=== PATIENT | male | born 1995 | race African-American/Black ===

== ENCOUNTER 2022-03-16 04:12 | Emergency (ER) | payer OTHER ==
[~2022-03-16] VITALS: Ht 175.3 cm; Wt 91.6 kg
--- NOTE | 2022-03-16 05:35 | NUR ---
pt in room 3 a states he wants a medication refill.
--- NOTE | 2022-03-16 07:15 | NUR ---
Pt is resting in [facility] with NAD noted. Pt is requesing a medication refill, MSE pending.
[2022-03-16] MEDS ORDERED: DARU1TAB3 PO (08:06)
--- NOTE | 2022-03-16 08:12 | NUR ---
Patient discharged to home in stable condition. Written and verbal after care instructions given. Patient verbalizes understanding of instructions. Stressed follow up or return to ER for worsening s/s.
[2022-03-17] MEDS ORDERED: DARU1TAB3 PO (23:12)
== END 2022-03-16 08:13 | disposition home or self-care (01) ==
LOC: ER 04:26
DX: Z76.0 Encounter for issue of repeat prescription (principal)
CPT/HCPCS: A4663

== ENCOUNTER 2022-03-17 21:57 | Emergency (ER) | payer OTHER ==
[~2022-03-17] VITALS: Ht 177.8 cm; Wt 92.5 kg
[~2022-03-17 21:57] MED LIST: DARU1TAB3 PO
--- NOTE | 2022-03-17 22:00 | NUR ---
Patient walked into ER c/o lower extremity pain. Patient is A/Ox4, no CP, no SOB, no distress noted.
[2022-03-17] MEDS ORDERED: DARU1TAB3 PO (23:12)
--- NOTE | 2022-03-17 23:30 | NUR ---
Patient discharged to home in stable condition. Written and verbal after care instructions given. Patient verbalizes understanding of instructions. Stressed follow up or return to ER for worsening s/s. Patient is A/Ox4, no SOB, no distress noted
[2022-03-17 23:42] VITALS: BP 132/75
== END 2022-03-17 23:30 | disposition home or self-care (01) ==
LOC: ER 22:03
DX: S90.822A Blister (nonthermal), left foot, initial encounter (principal); S90.821A Blister (nonthermal), right foot, initial encounter; X58.XXXA Exposure to other specified factors, initial encounter; Y93.01 Activity, walking, marching and hiking; Y92.89 Other specified places as the place of occurrence of the external cause; F17.210 Nicotine dependence, cigarettes, uncomplicated
CPT/HCPCS: A4663

== ENCOUNTER 2022-03-25 20:58 | Emergency (ER) | payer OTHER ==
--- NOTE | 2022-03-26 06:41 | NUR ---
pt has left without being triaged.
== END 2022-03-25 21:15 | disposition left against medical advice (07) ==
LOC: ER 21:02
DX: Z53.21 Procedure and treatment not carried out due to patient leaving prior to being seen by health care provider (principal)